=== PATIENT | male | born 1985 | race African-American/Black ===

== ENCOUNTER 2022-08-26 03:37 | Emergency (ER) | payer SELFPAY ==
[~2022-08-26] VITALS: Ht 182.9 cm; Wt 97.5 kg
[2022-08-26] MEDS ORDERED: MAGNESIUM/ALUMINUM/SIMETHICONE 30 ML UDC ONE (04:21)
[2022-08-26] MEDS ORDERED: BELLADONNA ALK/PHENOBARBITAL 5 ML UDC ONE (04:21)
[2022-08-26] MEDS ORDERED: LIDOCAINE VISC 2% SOLN 15 ML UDC ONE (04:21)
[2022-08-26] MEDS ORDERED: FAMOTIDINE 20 MG/2 ML VIAL IV STA (04:35)
[2022-08-26] MEDS ORDERED: ONDANSETRON HCL INJ 2MG/ML 2ML 2 MG/ML VIAL IV STA (04:35)
[2022-08-26] MEDS ORDERED: SODIUM CHLORIDE 0.9% 1000ML 1,000 ML IV SCH (04:45)
[2022-08-26] MEDS ORDERED: DONNATAL/LIDOCAINE/MAALOX 30 ML SUSP PO ONE (04:45)
[2022-08-26] MEDS ORDERED: ONDANSETRON HCL INJ 2MG/ML 2ML 2 MG/ML VIAL ONE (04:55)
[2022-08-26] MEDS ORDERED: FAMOTIDINE 20 MG/2 ML VIAL IV ONE (04:55)
[2022-08-26] MEDS ORDERED: SODIUM CHLORIDE 0.9% 1000ML 1,000 ML ONE (04:55)
[2022-08-26] MEDS ORDERED: PANTOPRAZOLE SO40 MG PO (05:23)
[2022-08-26] MEDS ORDERED: DONNATAL/LIDOCAINE/MAALOX 30 ML SUSP PO SCH (09:00)
== END 2022-08-26 06:07 | disposition home or self-care (01) ==
LOC: EDBD 03:37 → FSED 04:00
DX: R07.89 Other chest pain (principal); K21.9 Gastro-esophageal reflux disease without esophagitis; R10.13 Epigastric pain; R94.31 Abnormal electrocardiogram [ECG] [EKG]; F17.210 Nicotine dependence, cigarettes, uncomplicated
CPT/HCPCS: 80048; 80076; 82553; 84484; 85025; 93005; 99284; J2405; J7030